=== PATIENT | female | born 1930 | race Caucasian/White ===

== ENCOUNTER 2016-07-12 14:06 | Emergency (ER) | payer MEDICARE, BC ==
[~2016-07-12 14:06] MED LIST: ATENOLOL25 MG; COUMADIN5 MG; DIOVAN160 M; GLYBURIDE2.5 MG; IMDUR60 MG; NORCO 5/325 TAB1 TAB PO; NORVASC5 MG; PLAVIX75 MG; SYNTHROID75 MCG; ZETIA10 MG
[2016-07-12 15:16] LABS: BASO % 0.3 % (0-2); EOS % 0.5 % (0-7); HCT-HEMATOCRIT 37.4 % (34.0-49.0); HGB-HEMOGLOBIN 12.5 gm/dl (12.0-15.5); IMMATURE GRANULOCYTES ABSOLUTE 0.01 tho/cmm (0-0.03); IMMATURE GRANULOCYTES PERCENT 0.1 % (0-0.3); LYMPH % 20.4 % (20-45); LYMPH ABSOLUTE COUNT 1.6 tho/cmm (0.8-4.5); MCH (MEAN CORPUSCULAR HGB) 30.9 pg (28.0-32.0); MCHC MEAN CORPUSCULAR HGB CONC 33.4 % (32.0-36.0); MCV (MEAN CELL VOLUME) 92.6 fl (82.0-96.0); MEAN PLATELET VOLUME 10.1 cmc (9.4-12.4); MONO % 6.8 % (0-12); MONOCYTE ABSOLUTE COUNT 0.5 tho/cmm (0.0-1.2); NEUTROPHIL ABSOLUTE COUNT 5.5 tho/cmm (1.6-8.0); NEUTROPHIL-AUTOMATED 5.5 tho/cmm (1.6-8.0); NEUTROPHILS % 71.9 % (40-80); PLATELET COUNT 132 tho/cmm (150-450); RED BLOOD COUNT 4.04 mil/cmm (4.00-5.20); RED CELL DISTRIBUTION WIDTH 13.5 % (12.4-16.4); WHITE BLOOD COUNT 7.7 tho/cmm (4.0-10.0)
[2016-07-12 15:20] LABS: PROTHROMBIN TIME 11.4 SECONDS (9.0-13.6)
[2016-07-12] MEDS ORDERED: SYNTHROID88 MC1 PO (15:23)
[2016-07-12] MEDS ORDERED: PLAVIX75 M1 PO (15:23)
[2016-07-12] MEDS ORDERED: COZAAR100 M1 PO (15:23)
[2016-07-12] MEDS ORDERED: ISOSORBIDE MONO30 M4 PO (15:24)
[2016-07-12] MEDS ORDERED: GLUCOTROL5 M1 PO (15:24)
[2016-07-12] MEDS ORDERED: TENORMIN25 M1 PO (15:24)
[2016-07-12] MEDS ORDERED: LIPITOR80 M1 PO (15:25)
[2016-07-12] MEDS ORDERED: AMLODIPINE BESYL5 MG PO (15:25)
[2016-07-12 15:32] LABS: ALB/GLOB RATIO 1.2 (0.8-2.0); ALBUMIN 4.1 g/dl (3.5-5.0); ALKALINE PHOSPHATASE 64 U/L (33-138); ALT/SGPT 21 U/L (12-78); ANION GAP 14 mmol/L (0-20); AST/SGOT 14 U/L (10-40); BILIRUBIN,TOTAL 0.7 mg/dl (0-1.5); BLOOD UREA NITROGEN 34 mg/dl (6-24); CALCIUM 8.9 mg/dl (8.5-10.5); CARBON DIOXIDE-VENOUS 25 mmol/L (22-32); CHLORIDE 103 mmol/l (96-110); CREATININE 1.61 mg/dl (0.50-1.10); GLUCOSE 302 mg/dL (70-110); POTASSIUM 4.1 mmol/L (3.7-5.1); SODIUM 138 mmol/L (135-145); eGFR VALUE FOR BLACK 33 mL/Min
[2016-07-12 15:43] LABS: URINE APPEARANCE HAZY; URINE BILIRUBIN NEGATIVE (NEG); URINE BLOOD LARGE (NEG); URINE COLOR YELLOW; URINE GLUCOSE (UA) MODERATE (NEG); URINE KETONE SMALL (NEG); URINE LEUKOCYTE ESTERASE NEGATIVE (NEG); URINE NITRITE NEGATIVE (NEG); URINE PH 6.5 (5.0-8.0); URINE PROTEIN MODERATE (NEG)
[2016-07-12 15:52] LABS: URINE EPITHELIAL CELLS 0-2 /[HPF] (0-10); URINE WBC 0-2 /[HPF] (0-5)
[2016-07-12 15:53] LABS: URINE RBC 55-60 /[HPF] (0-5)
[2016-07-12] MEDS ORDERED: NORCO 5-325 TA1 EACH PO (16:41)
== END 2016-07-12 16:59 ==
LOC: EDMED 14:06
PROVIDERS: Emergency Medicine
DX: N13.2 Hydronephrosis with renal and ureteral calculous obstruction (principal); I25.10 Atherosclerotic heart disease of native coronary artery without angina pectoris; I25.2 Old myocardial infarction; I10 Essential (primary) hypertension; E11.9 Type 2 diabetes mellitus without complications; E03.9 Hypothyroidism, unspecified; Z95.5 Presence of coronary angioplasty implant and graft; Z95.1 Presence of aortocoronary bypass graft; Z79.01 Long term (current) use of anticoagulants; Z79.899 Other long term (current) drug therapy; Z79.890 Hormone replacement therapy
CPT/HCPCS: J2405; J7030